=== PATIENT | male | born 1990 | race Caucasian/White ===

== ENCOUNTER 2018-01-24 06:29 | Emergency (ER) | payer OTHER, SELFPAY ==
[2018-01-24 06:30] VITALS: BP 149/79; PULSE 83; RESP 16; TEMP 36.6; O2SAT 100; BMI 22.4
--- NOTE | 2018-01-24 07:04 | ED.VISSUMM ---
- ER Visit Summary Date of Service: 01/24/18 Chief Complaint: [] Left long finger injury History of Present Illness: The patient is a 27 M [] stated he injured his left long finger just prior to arrival at work. He pinched it at work between 2 pieces of metal. He has pain on the tip of the finger. Tetanus is up-to-date. Suffered a laceration. Comes in for further evaluation. No home treatment. Physical Examination: [] Vital signs reviewed General: Well-nourished well-developed Head: Normocephalic atraumatic Eyes: Pupils equal round and reactive to light extraocular movements intact ENT: TMs clear no hemotympanum no trauma Neck: Nontender full range of motion Cardiovascular: Regular rate rhythm no murmurs normal S1-S2 Respiratory: No distress clear to auscultation bilaterally chest nontender Abdomen: Soft nontender nondistended normal bowel sounds no masses Back: Nontender no CVA tenderness Extremities: Deep laceration the tip of the left long finger. One portion goes under the nail which is loose Neuro alert oriented cranial nerves II through XII intact normal strength sensation reflexes Test Results: [] Emergency Department Course and Treatment: [] Wound was cleansed with chlorhexidine and a digital block and local block was done on the finger with good anesthesia. Washed copiously with 500 cc of saline. The nail was removed. Patient received 7 simple sutures. X-ray was obtained of the wound to rule out fracture Treatment Plan: [] Disposition: [] Impression: [] This note was generated with [employer] dictation software. It may contain incorrect words, spelling, and punctuation that were not noted in review of the chart prior to signing ED Disposition - Plan for ED Patient: Chief Complaint: Laceration Referrals: NOT,DEFINED [Primary Care Provider] -
--- NOTE | 2018-01-24 07:12 | ED.DEP ---
ED Disposition - Plan for ED Patient: Disposition: Home or Assisted Living Chief Complaint: Laceration Instructions: ED Laceration All Referrals: NOT,DEFINED [Primary Care Provider] - [facility] [GROUP OF PHYSICIANS] -
== END 2018-01-24 07:41 | disposition home or self-care (01) ==
PROVIDERS: Emergency Provider Emergency Medicine
DX: S61.313A Laceration without foreign body of left middle finger with damage to nail, initial encounter (principal); W23.0XXA Caught, crushed, jammed, or pinched between moving objects, initial encounter; Y93.89 Activity, other specified; Y92.89 Other specified places as the place of occurrence of the external cause; Y99.0 Civilian activity done for income or pay
CPT/HCPCS: 11730; 12001; 73140; 99283

== ENCOUNTER → 2022-01-26 | Outpatient (CLI) | payer OTHER, SELFPAY ==
[2022-01-26 18:32] LABS: Erythrocyte Sedimentation Rate 5 mm/hr (0-20)
[2022-01-26 18:34] LABS: Absolute Lymphocyte Count 1.03 X10^3/uL (0.83-4.51); Absolute Neutrophil Count 4.4 X10^3/uL (2.0-7.7); Basophil# 0.03 X10^3/uL; Basophil% 0.5 % (0-1); Eosinophil# 0.07 X10^3/uL; Eosinophils% 1.2 % (0-5); Hematocrit 47.3 % (40-54); Hemoglobin 16.7 g/dL (13.0-16.5); Lymphocyte # 1.03 X10^3/ul (0.83-4.51); Lymphocyte % 17.3 % (19-41); Mean Corp Hgb Conc 35.3 g/dL (32-36); Mean Corpuscular Hgb 31.5 pg (27.0-32.0); Mean Corpuscular Volume 89.1 fL (80-94); Monocyte# 0.41 X10^3/uL; Monocyte% 6.9 % (0-10); NRBC Flagged by Analyzer 0 % (0-5); Neutrophil # 4.36 X10^3/uL (2.7-7.7); Neutrophil % 73.3 % (47-70); Platelet Count 156 K/mm3 (150-450); RBC Distribution Width CV 12.6 % (11.6-14.6); RBC Distribution Width SD 41.1 fl (35.1-43.9); Red Blood Count 5.31 M/mm3 (4.6-6.2)
[2022-01-26 19:03] LABS: Anion Gap 9 (5-15); BUN 17 mg/dL (7-18); BUN/Creat Ratio 14.9 RATIO (10-20); CRP < 2.90 mg/L (0.0-3.0); Calcium,Total 9.3 mg/dL (8.5-10.1); Chloride 100 mmol/L (98-107); Cholesterol 234 mg/dL (200); Creatinine, Serum 1.14 mg/dL (0.70-1.30); EST Glomerular Filtration Rate 79 mL/min (>60); Est Glom Filt Rate - Afr Amer 95 mL/min (>60); Glucose 114 mg/dL (74-106); High Density Lipoprotein 48 mg/dL; Potassium 3.3 mmol/L (3.5-5.1); Rheumatoid Factor < 10.0 IU/mL (<15); Sodium Level 138 mmol/L (136-145); Triglycerides 309 mg/dL; Uric Acid 6.6 mg/dL (3.5-7.2); Very Low Density Lipoprotein 62 mg/dL (5-40)
[2022-01-28 16:27] LABS: ANTINUCLEAR ANTIBODIES DIRECT Negative (Negative)
== END | disposition home or self-care (01) ==
PROVIDERS: PCP Family Medicine; Referring Provider Family Medicine; Visit Provider Family Medicine
DX: Z00.00 Encounter for general adult medical examination without abnormal findings (principal); M25.50 Pain in unspecified joint
CPT/HCPCS: 36415; 80048; 80061; 84550; 85025; 85652; 86038; 86140; 86431